=== PATIENT | female | born 1955 | race Caucasian/White ===

== ENCOUNTER 2019-12-27 11:07 | Emergency (ER) | payer OTHER, SELFPAY | END 2019-12-27 11:26 | disposition left against medical advice (07) | PROVIDERS: Emergency Provider Internal Medicine Hematology & Oncology; PCP Internal Medicine | DX: Z53.21 Procedure and treatment not carried out due to patient leaving prior to being seen by health care provider (principal) | CPT/HCPCS: 99199 ==

== ENCOUNTER 2020-01-05 13:39 | Outpatient (CLI) | payer OTHER, SELFPAY ==
--- NOTE | ~2020-01-05 | CT_ITS ---
EXAMINATION: CT abdomen pelvis wo/w con DATE: 01/05/2020 15:06 INDICATION: Microhematuria TECHNIQUE: Computed tomography (CT) of the abdomen and pelvis was performed without and with 130 cc O mnipaque 350 intravenous contrast. The dose-length product was 529.57 mGy-cm. Automated exposure cont rol and iterative reconstruction technique were employed. COMPARISON: None. FINDINGS: Lung bases are unremarkable. No significant pleural or pericardial effusion. Heart size nor mal. Fatty infiltration of the liver. Status post cholecystectomy. The spleen, adrenal glands and rig ht kidney are unremarkable. There is a 1.3 cm left renal cyst. No renal or ureteral stones. No hydron ephrosis. Bladder is unremarkable. Nonobstructive bowel gas pattern. There is a fat-containing supraumbilical hernia. Colonic diverticul osis without evidence for diverticulitis. Small hiatal hernia. Nonobstructive bowel gas pattern. Mild lumbar spondylosis. No free air or free fluid. No evidence for abscess. IMPRESSION: 1. No findings to account for hematuria. No acute abdominal abnormality. Reviewed, dictated and finalized at location A.
--- NOTE | ~2020-01-05 | XR_ITS ---
XR abdomen/kub 1V 01/05/2020 14:37 Indication: Microscopic hematuria Procedure: KUB Comparison: No prior studies for comparison. Findings: Bowel gas pattern is nonobstructive. There are extensive surgical changes of the abdomen an d pelvis. No urolithiasis identified. No acute osseous abnormality. Impression: 1: No acute abdominal abnormality. Reviewed, dictated and finalized at location A. Impression: 1: No acute abdominal abnormality.
[2020-01-05 14:48] LABS: Estimated Glomerular Filt Rate > 60
== END 2020-01-05 13:40 | disposition home or self-care (01) ==
PROVIDERS: Visit Provider Nurse Practitioner Adult Health
DX: R31.29 Other microscopic hematuria (principal)
CPT/HCPCS: 36415; 74018; 74178; Q9967